=== PATIENT | female | born 1985 | race Caucasian/White ===

== ENCOUNTER 2020-01-18 12:46 | Emergency (ER) | payer SELFPAY ==
[~2020-01-18] VITALS: Ht 177.8 cm; Wt 65.9 kg
[2020-01-18 12:53] VITALS: Ht 177.8 cm; Wt 65.9 kg
[2020-01-18] MEDS ORDERED: ALBUTEROL SULF8.5 GM INH (12:54)
[2020-01-18] MEDS ORDERED: NORVASC5 MG PO (12:54)
[2020-01-18] MEDS ORDERED: LISINOPRIL40 MG PO (12:54)
[2020-01-18] MEDS ORDERED: SYMBICORT 16010.2 GM INH (12:55)
[2020-01-18 13:22] LABS: HCG URINE NEGATIVE (NEGATIVE)
[2020-01-18 13:25] LABS: NITRITE NEGATIVE (NEGATIVE)
[2020-01-18 13:26] LABS: BILIRUBIN NEGATIVE (NEGATIVE); GLUCOSE NEGATIVE (NEGATIVE); KETONE NEGATIVE (NEGATIVE); RED CELLS - URINE 0-5 /hpf (0-5); UROBILINOGEN NORMAL (NORMAL); WHITE CELLS - URINE 0-5 /hpf (NEGATIVE)
[2020-01-18 13:27] LABS: BACTERIA FEW /hpf (NEGATIVE)
[2020-01-18 14:12] LABS: BASOPHILS 0.5 % (0-2); EOSINOPHILS 4.4 % (0-7); HEMATOCRIT 33.1 % (36.0-48.0); HEMOGLOBIN 9.2 g/dL (12-16); LYMPHOCYTES 16.2 % (15-50); MCHC 27.8 g/dL (31.0-37.0); MONOCYTES 4.9 % (2-11); PLATELET COUNT 274 10x3/uL (130-400); RDW 18.1 % (11.5-14.5); WBC 3.6 10x3/uL (4.8-10.8)
[2020-01-18 14:14] LABS: MCH 19.2 pg (26.0-34.0)
[2020-01-18 14:18] LABS: CALC OSMOLALITY 274 mosm/kg (275-300); CALCIUM 10.1 mg/dL (8.5-10.1); CARBON DIOXIDE 29.2 mmol/L (21.0-32.0); CHLORIDE - SERUM 101 mmol/L (98-107); CREATININE - SERUM 0.7 mg/dL (0.6-1.3); GLUCOSE 94 mg/dL (74-106); SODIUM 138 mmol/L (136-145); UREA NITROGEN 9 mg/dL (7-18); eGFR NON AFRICAN AMERICAN > 90 mL/min (90-120)
[2020-01-18 14:26] LABS: ALBUMIN 4.7 g/dL (3.4-5.0); ALKALINE PHOSPHATASE 51 U/L (30-120); ALT (SGPT) 13 U/L (10-68); AMYLASE - SERUM 54 U/L (25-115); BILIRUBIN - TOTAL 0.31 mg/dL (0.2-1.3); LIPASE 120 U/L (73-393); PROTEIN - SERUM 8.1 g/dL (6.4-8.2)
[2020-01-18] MEDS ORDERED: VOLTAREN75 MG PO (15:29)
[2020-01-18] MEDS ORDERED: ZOFRAN ODT4 MG/UDTAB PO (15:29)
[2020-01-18] MEDS ORDERED: BENTYL 20 MG TA20 MG PO (15:43)
[2020-01-18 16:39] VITALS: BP 148/92
== END 2020-01-18 16:39 | disposition home or self-care (01) ==
LOC: D.ER 12:46
PROVIDERS: Family Medicine
DX: Q61.3 Polycystic kidney, unspecified (principal); R10.30 Lower abdominal pain, unspecified; I10 Essential (primary) hypertension; N92.0 Excessive and frequent menstruation with regular cycle; J45.909 Unspecified asthma, uncomplicated; Z72.0 Tobacco use

== ENCOUNTER 2020-02-20 15:19 | Inpatient (IN) | payer MEDICAID ==
[~2020-02-20] VITALS: Ht 177.8 cm; Wt 59.4 kg
[~2020-02-20 15:19] MED LIST: ALBUTEROL SULF8.5 GM INH; BENTYL 20 MG TA20 MG PO; LISINOPRIL40 MG PO; NORVASC5 MG PO; SYMBICORT 16010.2 GM INH; VOLTAREN75 MG PO; ZOFRAN ODT4 MG/UDTAB PO
[2020-02-23] MEDS ORDERED: HYDROCODON-ACE1 EAC7 PO (14:07)
[2020-03-07 15:31] LABS: BASOPHILS 0.7 % (0-2); EOSINOPHILS 5.8 % (0-7); HEMOGLOBIN 9.9 g/dL (12-16); IMMATURE GRANULOCYTES 0.1 % (0-5); LYMPHOCYTES 22.1 % (15-50); MCHC 29.1 g/dL (31.0-37.0); MONOCYTES 7.3 % (2-11); RBC 4.72 10x6/uL (4.00-5.40); RDW 21.2 % (11.5-14.5); WBC 6.7 10x3/uL (4.8-10.8)
[2020-03-07 15:34] LABS: PLATELET COUNT 155 10x3/uL (130-400)
[2020-03-07 15:43] LABS: CALC OSMOLALITY 272 mosm/kg (275-300); CARBON DIOXIDE 28.2 mmol/L (21.0-32.0); CHLORIDE - SERUM 102 mmol/L (98-107); CREATININE - SERUM 0.8 mg/dL (0.6-1.3); GLUCOSE 82 mg/dL (74-106); POTASSIUM - SERUM 3.8 mmol/L (3.5-5.1); SODIUM 135 mmol/L (136-145); UREA NITROGEN 23 mg/dL (7-18); eGFR NON AFRICAN AMERICAN 87 mL/min (90-120)
[2020-03-09 06:25] VITALS: BP 145/101; BMI 18.6
[2020-03-09 06:58] LABS: HCG URINE NEGATIVE (NEGATIVE)
--- NOTE | 2020-03-09 10:54 | NUR ---
REPORT RECEIVED FROM [facility] RN.
[2020-03-09 11:13] VITALS: BP 169/90
--- NOTE | 2020-03-09 12:31 | NUR ---
Paged Dr. Haro concerning BP's
--- NOTE | 2020-03-09 12:33 | NUR ---
Dr. Haro returns page. Report given. Orders rec.
--- NOTE | 2020-03-09 13:31 | NUR ---
Pharmacy called again regarding BP medicine.
--- NOTE | 2020-03-09 13:47 | NUR ---
paged Dr. Haro again per pt.'s s/o's request.
--- NOTE | 2020-03-09 13:48 | NUR ---
Dr. Haro returns page. Report given concerning continued elevated blood pressures and pt.'s continued report of pain. Dr. Haro reports he will call back.
--- NOTE | 2020-03-09 14:59 | NUR ---
paged Dr. Haro again concerning elevated blood pressures and pt.'s pain.
--- NOTE | 2020-03-09 15:08 | NUR ---
Paged Dr. Haro again to report BP's and pt.'s continued report of pain.
--- NOTE | 2020-03-09 17:28 | MORECARE ---
CASE MANAGEMENT DISCHARGE SUMMARY PATIENT: MITCHEL MC UNIT: [id number] ADM DATE: 03/09/20 AGE: 34 : 85 SEX: F ROOM/BED: D.1278 AUTHOR: VLAD GARCIA PHYSICIAN: REFERRING PHYSICIAN: ELIZABETH REILLY MD DATE OF SERVICE: 03/09/20 Discharge Plan Patient Name: MITCHEL MC [facility] [facility] 1985 Planned Disposition: Home Anticipated Discharge Date: 03/11/20 Discharge Date: Expected LOS: 2 Initial Reviewer: [email or web address] Initial Review Date: 03/09/2020 Generated: 03/09/20 6:28 pm Patient Name: MITCHEL MC Page [id number] at 1728 All edits/amendments must be made on the electronic document DICTATION DATE: 03/09/201727 OCTAVE BOARD ASSEMBLER: ELOY 03/09/201727 RPT#: [id number] DC DATE: STATUS: ADM IN [facility] [address] [place] [address] END OF REPORT
--- NOTE | 2020-03-09 17:50 | NUR ---
Repeat H/H drawn via butterfly and sent to lab for recheck.
[2020-03-09 17:56] LABS: BASOPHILS 0.1 % (0-2); EOSINOPHILS 0 % (0-7); HEMATOCRIT 41.1 % (36.0-48.0); IMMATURE GRANULOCYTES 0.3 % (0-5); LYMPHOCYTES 3.3 % (15-50); MCHC 29.2 g/dL (31.0-37.0); MCV 71.9 fL (80.0-100.0); MONOCYTES 4.7 % (2-11); NEUTROPHILS 91.6 % (40-80); RBC 5.72 10x6/uL (4.00-5.40); RDW 22.5 % (11.5-14.5); WBC 11.5 10x3/uL (4.8-10.8)
[2020-03-09 17:57] LABS: PLATELET COUNT 209 10x3/uL (130-400)
--- NOTE | 2020-03-09 18:06 | NUR ---
Report called to Dr. Haro of BP's and redraw on H/H results. No new orders.
[2020-03-09 19:45] VITALS: BP 154/83
--- NOTE | 2020-03-09 22:30 | NUR ---
PT RESTING QUIETLY WITH EYES CLOSED, NO DISTRESS NOTED. S/O AT BEDSIDE.
[2020-03-10 00:15] VITALS: BP 137/62
--- NOTE | 2020-03-10 00:15 | NUR ---
PT AWAKE SITTING UP IN BED. STATES CANNOT SLEEP AND IS ANXIOUS TO GET HER CATHETER OUT. EXPLAINED NO ORDER TO REMOVE UNTIL MD ROUNDS IN AM. PT VOICED UNDERSTANDING.
--- NOTE | 2020-03-10 02:30 | NUR ---
CALLED UNIT INSTRUCTED TO DECREASE DILAUDID BUTCHER TO 0.3 MG FROM 0.4MG. MAY REMOVE CATHETER IF PT DESIRES.
--- NOTE | 2020-03-10 02:42 | NUR ---
PT AWAKE AND ALERT. REQUESTS FELIZ REMOVED FOR COMFORT. FELIZ REMOVED. [facility] DONE. INSTRUCTED PT TO CALL FOR ASSIST WITH AMBULATION AND TO MEASURE URINE
--- NOTE | 2020-03-10 02:53 | NUR ---
NEW DILAUDID SYRINGE HUNG TO GUM DIPPER AND DOSE CHANGED PER ORDER TO 0.3 MG. PT RATES PAIN 3-4/10 CURRENTLY AND STATES "ITS NOT TOO BAD".
--- NOTE | 2020-03-10 04:54 | NUR ---
PT AWAKE IN BED, SMILING STATES FEELS MUCH BETTER WITH FELIZ CATHETER OUT. PT VOIDED 200 CC TO HAT. S/O BEDSIDE. PT DENIES DIZZINESS
[2020-03-10 05:42] LABS: BASOPHILS 0.4 % (0-2); EOSINOPHILS 1.2 % (0-7); HEMATOCRIT 33.2 % (36.0-48.0); HEMOGLOBIN 9.7 g/dL (12-16); IMMATURE GRANULOCYTES 0.2 % (0-5); LYMPHOCYTES 11.4 % (15-50); MCHC 29.2 g/dL (31.0-37.0); MCV 71.9 fL (80.0-100.0); MONOCYTES 11.2 % (2-11); NEUTROPHILS 75.6 % (40-80); PLATELET COUNT 175 10x3/uL (130-400); RBC 4.62 10x6/uL (4.00-5.40); RDW 22.4 % (11.5-14.5); WBC 5.7 10x3/uL (4.8-10.8)
[2020-03-10 05:52] LABS: CALC OSMOLALITY 269 mosm/kg (275-300); CALCIUM 9.1 mg/dL (8.5-10.1); CARBON DIOXIDE 28.3 mmol/L (21.0-32.0); CHLORIDE - SERUM 102 mmol/L (98-107); CREATININE - SERUM 0.6 mg/dL (0.6-1.3); GLUCOSE 107 mg/dL (74-106); POTASSIUM - SERUM 3.7 mmol/L (3.5-5.1); SODIUM 136 mmol/L (136-145); UREA NITROGEN 8 mg/dL (7-18); eGFR NON AFRICAN AMERICAN > 90 mL/min (90-120)
[2020-03-10 06:14] VITALS: BP 144/99; Ht 177.8 cm; Wt 59.4 kg
[2020-03-10 07:27] VITALS: BP 149/88
--- NOTE | 2020-03-10 07:40 | NUR ---
AM ASSESSMENT COMPLETED, PT AWAKE, ALERT, RESPONSIVE, AND CONVERSANT WITHOUT S/SX DISTRESS. VSS. PT REPORTS BP IS "GOOD FOR ME-IT'S USUALLY HIGHER THAN THAT DUE TO MY POLYCYSTIC KIDNEYS". PT STATES DESIRE TO GO HOME TODAY CITING THAT HER PAIN IS MUCH MORE CONTROLLED. TOLERATING PO FLUIDS ORDERED, +FLATUS, ABD FLAT, DRESSING CDI TO LOW TRANSVERSE ABD, VOIDING WITHOUT DIFFIUCLTY, ROLDAN FREELY, NEGATIVE YANG'S SIGN B LE, POPLITEAL AND PEDAL PULSES 2+ B. REVIEWED PLAN OF CARE TODAY, QUESTIONS ANSWERED, PT VOICES UNDERSTANDING OF ALL INFORMATION PROVIDED. CALL LIGHT WITHIN EASY REACH, BED IN LOW POSITION, BED BRAKES LOCKED, SIDE RAILS UP X2. WILL CONTINUE TO MONITOR.
--- NOTE | 2020-03-10 08:30 | NUR ---
DR REILLY TO PT ROOM AND REMOVES DRESSING, LOW TRANSVERSE INCISION CDI WITH XIAO, WELL-APPROXIMATED, NO REDNESS, WARMTH, DRAINAGE, OR DEHISCENCE NOTED. PT NAD NOTED, CONTINUE TO MONITOR.
--- NOTE | 2020-03-10 09:04 | NUR ---
pt c/o incisional pain, norco 10/325 mg po given with sips water, prevention rn discontinued, regular diet provided per md orders. reviewed plan of care, new orders. pt states understanding of new orders. call light in easy reach. no other needs voiced at present.
--- NOTE | 2020-03-10 10:35 | NUR ---
rounds completed, pt smiling, states pain well controlled, cup of ice water provided upon request, tolerating regular po, voiding without difficulty, ambulatory in room. continue to monitor.
[2020-03-10 11:30] VITALS: BP 151/91
--- NOTE | 2020-03-10 11:30 | NUR ---
pt states desire to go home, reviewed plan of care to include tolerating regular lunch po and will phone md at that time. pt states oral pain meds remain effective for now and is satisfied with pain management. call light in easy reach.
--- NOTE | 2020-03-10 12:19 | NUR ---
phoned dr albert as directed to notify of pt desire to go home or not, orders received to discharge pt to home, prescription for norco 10/325 in chart to be given to pt, and to follow up in clinic for staple removal.
[2020-03-10] MEDS ORDERED: HYDROCODON-ACE1 EA10 PO (12:22)
--- NOTE | 2020-03-10 12:35 | NUR ---
discharge instructions reviewed with pt, handouts provided for review once at home, pt voices understanding and is verified via torb, saline lock to left a/c discontinued, catheter tip intact, pt tolerates procedure well, gauze placed over piv site and secured with tape. pt requests prn norco prior to leaving, same provided as within acceptable window of administration.
--- NOTE | 2020-03-10 12:52 | NUR ---
pt discharged to home with all personal belongings via w/c to private auto and spouse. nad noted.
--- NOTE | 2020-03-12 09:11 | MORECARE ---
CASE MANAGEMENT DISCHARGE SUMMARY PATIENT: MITCHEL MC UNIT: [id number] ADM DATE: 03/09/20 AGE: 34 : 85 SEX: F ROOM/BED: D.1278 AUTHOR: VLAD GARCIA PHYSICIAN: REFERRING PHYSICIAN: ELIZABETH REILLY MD DATE OF SERVICE: 03/12/20 Discharge Plan Patient Name: MITCHEL MC [facility] [facility] 1985 Planned Disposition: Home Anticipated Discharge Date: 03/11/20 Discharge Date: 03/10/2020 Expected LOS: 2 Initial Reviewer: [email or web address] Initial Review Date: 03/09/2020 Generated: 03/12/20 10:11 am Last DP export: 03/09/20 4:28 p Patient Name: MITCHEL MC Page [id number] at 0911 All edits/amendments must be made on the electronic document DICTATION DATE: 03/12/20910 CONTROLLER INSTRUCTOR: ELOY 03/12/20910 RPT#: [id number] DC DATE:03/10/20 STATUS: DIS IN [facility] [address] [place] [address] END OF REPORT
== END 2020-03-10 12:52 | disposition home or self-care (01) | DRG 742 ==
LOC: D.SDCHOLD 03-09 05:50 → D.LD 03-09 05:50 → D.SDCHOLD 03-09 07:30 → D.LD 03-09 10:52
PROVIDERS: ADMIT Obstetrics & Gynecology; ATTEND Obstetrics & Gynecology
PROC: 0UT90ZZ Resection of Uterus, Open Approach (ICD-10-PCS; principal; 2020-03-09 07:30)
PROC: 0UB70ZZ Excision of Bilateral Fallopian Tubes, Open Approach (ICD-10-PCS; 2020-03-09 07:30)
DX: N80.0 Endometriosis of uterus (principal); Q61.3 Polycystic kidney, unspecified; I10 Essential (primary) hypertension; N92.0 Excessive and frequent menstruation with regular cycle; D64.9 Anemia, unspecified; R22.9 Localized swelling, mass and lump, unspecified

== ENCOUNTER 2020-02-23 09:32 | Outpatient (CLI) | payer MEDICAID ==
[~2020-02-23] VITALS: Ht 177.8 cm; Wt 59.5 kg
[2020-02-23 10:26] VITALS: BP 130/86; Ht 177.8 cm; Wt 59.5 kg
[2020-02-23] MEDS ORDERED: HYDROCODON-ACE1 EAC7 PO (14:07)
--- NOTE | 2020-02-23 14:35 | NUR ---
PAGE IN TO DR. REILLY, PT HAVING BACK PAIN 8:10. HYDROCODONE 5 X 2 TABS GIVEN FOR PAIN.
== END 2020-02-23 16:00 ==
LOC: D.OPS 09:32
PROVIDERS: ATTEND Obstetrics & Gynecology
DX: D64.9 Anemia, unspecified (principal)